=== PATIENT | male | born 1960 | race Caucasian/White ===

== ENCOUNTER 2018-03-05 04:27 | Inpatient (IN) | payer MEDICAID ==
[2018-03-05] VITALS (13 sets, daily range): BP systolic 108–136; BP diastolic 70–91
[~2018-03-05] VITALS: Ht 160 cm; Wt 68.0 kg
[~2018-03-05 04:27] MED LIST: ALB0.5UD IH; ALBU8.5H8 IH; ASPI-1265 PO; ATE25T PO; FLO44IN INH; FLUT16SP2 BOTHNARES; LORA10TA65 PO; OMEP20CA10 PO; PANT20TA3 PO
[2018-03-05 04:55] LABS: BASOPHILS # (AUTO) 0.1 X10'3 (0-0.2); BASOPHILS % (AUTO) 0.8 % (0-1); EOSINOPHILS # (AUTO) 0.7 X10'3 (0-0.9); EOSINOPHILS % (AUTO) 5.4 % (0-6); HEMATOCRIT 40.4 % (42.0-52.0); HEMOGLOBIN 14.1 g/dl (14.0-17.9); LYMPHOCYTES # (AUTO) 2.5 X10'3 (1.1-4.8); LYMPHOCYTES % (AUTO) 19.5 % (21-51); MEAN CORPUSCULAR HEMOGLOBIN 32.2 PG (27.0-31.0); MEAN CORPUSCULAR HGB CONC 34.9 % (33.0-36.5); MEAN CORPUSCULAR VOLUME 92.4 FL (78-98); MEAN PLATELET VOLUME 8.5 FL (7.4-10.4); MONOCYTES # (AUTO) 0.9 X10'3 (0-0.9); MONOCYTES % (AUTO) 6.9 % (2-12); NEUTROPHILS # (AUTO) 8.8 X10'3 (1.8-7.7); NEUTROPHILS % (AUTO) 67.4 % (42-75); PLATELET COUNT 230 X10'3 (140-440); RED BLOOD COUNT 4.37 X10'6 (4.70-6.10); RED CELL DISTRIBUTION WIDTH 12.9 % (11.5-14.5)
[2018-03-05] MEDS ORDERED: normal saline 1000ml 1,000 ML IV ONE (04:55)
[2018-03-05 04:58] LABS: CLARITY,URINE CLEAR (Clear); COLOR,URINE YELLOW (Yellow); GLUCOSE, URINE NEGATIVE (Neg); KETONES,URINE NEGATIVE (Neg); LEUKOCYTE ESTERASE ,URINE NEGATIVE (Neg); NITRITES, URINE NEGATIVE (Neg); OCCULT BLOOD,URINE SMALL (Neg); PH,URINE 6.5 (4.8-8.0); PROTEIN,URINE NEGATIVE (Neg); UROBILINOGEN,URINE 0.2 E.U/dL (0.2-1.0)
[2018-03-05 05:09] LABS: UA COLLECTION TYPE CLN CATCH MIDSTREAM
[2018-03-05 05:10] LABS: BACTERIA,URINE FEW /HPF (Neg); SQUAMOUS EPITHELIAL CELL,UR FEW /LPF (FEW); WBC,URINE 0-4 /HPF (0-4)
[2018-03-05 05:11] LABS: AMORPHOUS PHOSPHATES 1+; MUCUS STRANDS FEW /LPF (Neg)
[2018-03-05 05:18] LABS: TOTAL CELLS COUNTED 100
[2018-03-05 05:19] LABS: PLATELET ESTIMATE NORMAL
[2018-03-05 05:28] LABS: ALANINE AMINOTRANSFERASE 22 U/L (12-78); ALBUMIN 3.7 G/DL (3.4-5.0); ALBUMIN/GLOBULIN RATIO 1.2 (1.1-1.5); ALKALINE PHOSPHATASE 172 IU/L (46-116); ANION GAP 8 (8-16); ASPARTATE AMINO TRANSFERASE 13 U/L (10-37); BILIRUBIN,TOTAL 0.7 MG/DL (0.1-1.0); BLOOD UREA NITROGEN 8 MG/DL (7-18); BUN/CREATININE RATIO 8.4 (5.4-32.0); CALCIUM 8.8 MG/DL (8.5-10.1); CHLORIDE 104 MMOL/L (99-107); CREATININE 0.95 MG/DL (0.60-1.10); GLUCOSE 108 MG/DL (70-104); POTASSIUM 3.1 MMOL/L (3.5-5.1); SODIUM 142 MMOL/L (135-145); TOTAL PROTEIN 6.9 G/DL (6.4-8.2); eGFR 82 ML/MIN
[2018-03-05] MEDS ORDERED: potassium Cl 20 mEq SR tablet PO ONE (06:35)
[2018-03-05] MEDS ORDERED: piperacillin/tazo 4.5gm/100ml 100 ML IV ONE (07:40)
[2018-03-05] MEDS ORDERED: piperacillin/tazo 4.5gm/100ml 100 ML IV SCH (08:00)
[2018-03-05] MEDS ORDERED: morphine 4 MG/ML inj SYRINge IV ONE (08:40)
[2018-03-05] MEDS ORDERED: LORA10TA7 PO (08:56)
[2018-03-05] MEDS ORDERED: PANT20TA3 PO (08:56)
[2018-03-05] MEDS ORDERED: FLUT16SP2 BOTHNARES (08:56)
[2018-03-05] MEDS ORDERED: OMEP20TA5 PO (08:58)
[2018-03-05] MEDS ORDERED: HYDROcodone/acetaminophen 5mg/325mg tablet PO PRN (09:05)
[2018-03-05] MEDS ORDERED: mag hydrox/Alum hydrox/simeth 30ml oral suspension PO PRN (09:05)
[2018-03-05] MEDS ORDERED: acetaminophen 325mg tablet PO PRN ×2 (09:05)
[2018-03-05] MEDS ORDERED: HYDROcodone/acetaminophen 10/325mg tab PO PRN (09:05)
[2018-03-05] MEDS ORDERED: FLO0.4C PO (09:05)
[2018-03-05] MEDS ORDERED: potassium Cl 40MEQ/NS 500ml 500 ML IV PRN ×2 (09:05)
[2018-03-05] MEDS ORDERED: magnesium Cl slow-release 64mg tablet PO PRN (09:05)
[2018-03-05] MEDS ORDERED: ondansetron/PF 4mg/2ml inj IV PRN ×2 (09:05→19:35)
[2018-03-05] MEDS ORDERED: magnesium hydroxide 30ml (MOM) UD suspension PO PRN (09:05)
[2018-03-05] MEDS ORDERED: metoclopramide 5 mg/ml inj IV PRN (09:05)
[2018-03-05] MEDS ORDERED: magnesium 4gm in 100ml NS 100 ML IV PRN (09:05)
[2018-03-05] MEDS ORDERED: potassium Cl 20 mEq SR tablet PO PRN ×2 (09:05)
[2018-03-05] MEDS ORDERED: magnesium 1gm/100ml D5W IVPB 100 ML IV PRN (09:05)
[2018-03-05] MEDS ORDERED: albuterol 2.5 mg/0.5ml nebule NEB PRN (09:10)
[2018-03-05] MEDS: normal saline 1000ml 1,000 ML IV SCH ×2 (09:17→19:03)
[2018-03-05] MEDS ORDERED: albuterol 2.5 MG/3 ML nebule NEB PRN (09:25)
[2018-03-05] MEDS: morphine 2 MG/ML inj. syringe IV PRN ×2 (10:13→20:43)
[2018-03-05] MEDS ORDERED: BUPIVAcaine/PF 2.5mg/ml (0.25%) 10ml vial ONE (14:01)
[2018-03-05] MEDS: piperacillin/tazo 3.375gm/50ml 50 ML IV SCH ×2 (16:25→23:57)
[2018-03-05] MEDS ORDERED: ondansetron/PF 4mg/2ml inj ONE (18:21)
[2018-03-05] MEDS ORDERED: sevoflurane 250ml liquid IH ONE (18:21)
[2018-03-05] MEDS ORDERED: fentaNYL /PF 50mcg/ml 5ml ampule ONE (18:23)
[2018-03-05] MEDS ORDERED: midazolam 2 mg/2 ml injection ONE (18:23)
[2018-03-05] MEDS ORDERED: LIDOcaine 2% (20mg/ml) 5ml vial ONE (18:58)
[2018-03-05] MEDS ORDERED: propofol inj 20 ML IV ONE (18:58)
[2018-03-05] MEDS ORDERED: rocuronium 10mg/ml inj IV ONE (18:58)
[2018-03-05] MEDS ORDERED: glycopyrrolate 0.2mg/ml inj ONE (18:58)
[2018-03-05] MEDS ORDERED: neostigmine methylsulfate 1 MG/ML 10ml vial ONE (18:58)
[2018-03-05] MEDS ORDERED: albuterol 60 PUFF/8GM Inhaler IH ONE (19:19)
[2018-03-05] MEDS ORDERED: ringers solution, lacted 1,000 ML IV SCH (19:31)
[2018-03-05] MEDS ORDERED: meperidine/PF 25mg/ml syringe IV PRN ×2 (19:35)
[2018-03-05] MEDS ORDERED: morphine 4 MG/ML inj SYRINge IV PRN ×2 (19:35)
[2018-03-05] MEDS ORDERED: proCHLORperazine 10 MG/2 ml inj IV PRN (19:35)
[2018-03-05] MEDS: meperidine/PF 25mg/ml syringe IV PRN ×3 (19:44→20:03)
[2018-03-05] MEDS ORDERED: temazepam 15mg capsule PO PRN (21:00)
[2018-03-05] MEDS ORDERED: LIDOcaine 2% 10ml TOPICAL JELLY (Urojet) MM ONE (23:50)
[2018-03-06 04:56] VITALS: BP 107/59
[2018-03-06 05:25] LABS: BASOPHILS % (AUTO) 0 % (0-1); EOSINOPHILS # (AUTO) 0.1 X10'3 (0-0.9); EOSINOPHILS % (AUTO) 1.1 % (0-6); HEMOGLOBIN 12.4 g/dl (14.0-17.9); LYMPHOCYTES # (AUTO) 0.7 X10'3 (1.1-4.8); LYMPHOCYTES % (AUTO) 7.1 % (21-51); MEAN CORPUSCULAR HEMOGLOBIN 32.1 PG (27.0-31.0); MEAN CORPUSCULAR HGB CONC 34.4 % (33.0-36.5); MEAN CORPUSCULAR VOLUME 93.4 FL (78-98); MEAN PLATELET VOLUME 8.9 FL (7.4-10.4); MONOCYTES # (AUTO) 0.2 X10'3 (0-0.9); MONOCYTES % (AUTO) 2.2 % (2-12); NEUTROPHILS # (AUTO) 8.5 X10'3 (1.8-7.7); NEUTROPHILS % (AUTO) 89.6 % (42-75); PLATELET COUNT 217 X10'3 (140-440); RED BLOOD COUNT 3.85 X10'6 (4.70-6.10); RED CELL DISTRIBUTION WIDTH 13.6 % (11.5-14.5); WHITE BLOOD COUNT 9.4 X10'3 (4.5-11.0)
[2018-03-06 05:34] LABS: PARTIAL THROMBOPLASTIN TIME 26 SECONDS (22-32); PROTHROMBIN TIME 10.8 SECONDS (9.0-12.0)
[2018-03-06 05:45] LABS: ALANINE AMINOTRANSFERASE 94 U/L (12-78); ALBUMIN 3.1 G/DL (3.4-5.0); ALBUMIN/GLOBULIN RATIO 0.9 (1.1-1.5); ALKALINE PHOSPHATASE 188 IU/L (46-116); ANION GAP 11 (8-16); ASPARTATE AMINO TRANSFERASE 59 U/L (10-37); BILIRUBIN,TOTAL 0.9 MG/DL (0.1-1.0); BLOOD UREA NITROGEN 10 MG/DL (7-18); BUN/CREATININE RATIO 7.9 (5.4-32.0); CALCIUM 8.3 MG/DL (8.5-10.1); CHLORIDE 104 MMOL/L (99-107); CREATININE 1.26 MG/DL (0.60-1.10); GLUCOSE 202 MG/DL (70-104); PHOSPHORUS 2.2 MG/DL (2.3-4.5); POTASSIUM 4.2 MMOL/L (3.5-5.1); SODIUM 138 MMOL/L (135-145); TOTAL CARBON DIOXIDE 23.4 MMOL/L (24-32); TOTAL PROTEIN 6.4 G/DL (6.4-8.2); eGFR 59 ML/MIN
[2018-03-06 07:30] VITALS: BP 117/71
[2018-03-06] MEDS: normal saline 1000ml 1,000 ML IV SCH (07:36)
[2018-03-06] MEDS: piperacillin/tazo 3.375gm/50ml 50 ML IV SCH (07:36)
[2018-03-06] MEDS ORDERED: loratadine 10mg tablet PO SCH (08:00)
[2018-03-06] MEDS ORDERED: tamsulosin 0.4mg capsule PO SCH (08:00)
[2018-03-06] MEDS ORDERED: pantoprazole 40mg Tablet.DR PO SCH (08:00)
[2018-03-06] MEDS ORDERED: fluticasone nasal spray 16GM bottle NS SCH (08:00)
[2018-03-06] MEDS ORDERED: K and/or MAG REPLACEMENT MC SCH (08:00)
[2018-03-06 11:33] VITALS: BP 131/78
== END 2018-03-06 13:03 | disposition home or self-care (01) | DRG 233 ==
LOC: ER 04:27 → ED HOLD 09:03 → SUR 3N 10:36 → PAS IN 17:39 → SUR 3N 20:11
PROVIDERS: ADMIT Family Medicine; ATTEND Family Medicine
PROC: 0DTJ4ZZ Resection of Appendix, Percutaneous Endoscopic Approach (ICD-10-PCS; principal; 2018-03-05 18:21)
DX: K35.3 Acute appendicitis with localized peritonitis (principal); D72.829 Elevated white blood cell count, unspecified; E78.5 Hyperlipidemia, unspecified; I34.1 Nonrheumatic mitral (valve) prolapse; J45.909 Unspecified asthma, uncomplicated; K21.9 Gastro-esophageal reflux disease without esophagitis; E87.6 Hypokalemia; I10 Essential (primary) hypertension; K44.9 Diaphragmatic hernia without obstruction or gangrene; N40.0 Benign prostatic hyperplasia without lower urinary tract symptoms; Z88.1 Allergy status to other antibiotic agents; Z87.442 Personal history of urinary calculi; Z88.2 Allergy status to sulfonamides; Z88.6 Allergy status to analgesic agent; Z83.79 Family history of other diseases of the digestive system; Z86.010 Personal history of colon polyps
CPT/HCPCS: 36415; 71045; 74176; 80053; 81001; 83735; 84100; 85025; 85610; 85730; 86885; 86900; 86901; 87070; 93005; 94760; 96361; 96365; 96375; 99285; A4353; A7000; J2001; J2175; J2250; J2270; J2405; J2543; J2704; J2710; J2765; J3010; J3490; J7030; J7120; J7611

== ENCOUNTER 2018-04-25 05:04 | Day surgery (SDC) | payer MEDICAID ==
[2018-04-23 10:59] LABS: BASOPHILS # (AUTO) 0.1 X10'3 (0-0.2); BASOPHILS % (AUTO) 0.8 % (0-1); EOSINOPHILS # (AUTO) 0.8 X10'3 (0-0.9); LYMPHOCYTES # (AUTO) 2.4 X10'3 (1.1-4.8); LYMPHOCYTES % (AUTO) 35.3 % (21-51); MEAN CORPUSCULAR HEMOGLOBIN 31.5 PG (27.0-31.0); MEAN CORPUSCULAR HGB CONC 33.6 % (33.0-36.5); MEAN PLATELET VOLUME 8.8 FL (7.4-10.4); MONOCYTES # (AUTO) 0.5 X10'3 (0-0.9); MONOCYTES % (AUTO) 7.6 % (2-12); NEUTROPHILS # (AUTO) 3.1 X10'3 (1.8-7.7); NEUTROPHILS % (AUTO) 45.3 % (42-75); PRE OP HEMATOCRIT 42.5 % (42.0-52.0); PRE OP HEMOGLOBIN 14.2 g/dL (14.0-17.9); PRE OP PLATELET COUNT 252 X10'3 (140-440); RED BLOOD COUNT 4.52 X10'6 (4.70-6.10); RED CELL DISTRIBUTION WIDTH 12.9 % (11.5-14.5)
[2018-04-23 11:21] LABS: ALBUMIN 3.7 G/DL (3.4-5.0); ALBUMIN/GLOBULIN RATIO 1.1 (1.1-1.5); ALKALINE PHOSPHATASE 164 IU/L (46-116); BLOOD UREA NITROGEN 12 MG/DL (7-18); BUN/CREATININE RATIO 12.2 (5.4-32.0); CALCIUM 9.4 MG/DL (8.5-10.1); CHLORIDE 103 MMOL/L (99-107); CREATININE 0.98 MG/DL (0.60-1.10); PRE OP ALT 29 U/L (30-65); PRE OP ANION GAP 5 (8-16); PRE OP AST 19 U/L (10-37); PRE OP BILIRUB, TOTAL 0.4 MG/DL (0.0-1.0); PRE OP GLUCOSE 86 MG/DL (70-104); PRE OP POTASSIUM 4.3 MMOL/L (3.4-5.1); PRE OP SODIUM 141 MMOL/L (135-145); TOTAL PROTEIN 7.1 G/DL (6.4-8.2); eGFR 79 ML/MIN
[2018-04-23 12:59] LABS: CLARITY,URINE CLEAR (Clear); COLOR,URINE YELLOW (Yellow); GLUCOSE, URINE NEGATIVE (Neg); KETONES,URINE NEGATIVE (Neg); LEUKOCYTE ESTERASE ,URINE NEGATIVE (Neg); NITRITES, URINE NEGATIVE (Neg); OCCULT BLOOD,URINE LARGE (Neg); PROTEIN,URINE NEGATIVE (Neg); UROBILINOGEN,URINE 0.2 E.U/dL (0.2-1.0)
[2018-04-23 13:01] LABS: UA COLLECTION TYPE CLN CATCH MIDSTREAM
[2018-04-23 13:13] LABS: BACTERIA,URINE NONE SEEN /HPF (Neg); RBC,URINE TNTC /HPF (0-2); WBC,URINE 0-4 /HPF (0-4)
[2018-04-23 13:14] LABS: CAL OXALATE CRYSTALS 2+ /HPF (NEGATIVE); SQUAMOUS EPITHELIAL CELL,UR NONE SEEN /LPF (FEW)
[~2018-04-25] VITALS: Ht 160 cm; Wt 70.2 kg
[2018-04-25] VITALS (9 sets, daily range): BP systolic 93–154; BP diastolic 38–95
[~2018-04-25 05:04] MED LIST changes: +ALBU2.5V13 NEB; -ALBU8.5H8 IH; -ASPI-1265 PO; -ATE25T PO; -FLO44IN INH; -FLUT16SP2 BOTHNARES; +HYDR-3973 PO; -LORA10TA65 PO; +LORA10TA7 PO; -OMEP20CA10 PO; +ringers solution, lacted 1,000 ML IV SCH
[2018-04-25] MEDS ORDERED: albuterol 2.5 MG/3 ML nebule NEB ONE (05:30)
[2018-04-25] MEDS ORDERED: famotidine 20mg tablet PO ONE (05:30)
[2018-04-25] MEDS ORDERED: cefazolin/dext.iso 2gm/100 ML IV ONE (05:30)
[2018-04-25] MEDS ORDERED: LIDOcaine 1% (10mg/ml) 2ml vial ONE (05:45)
[2018-04-25] MEDS ORDERED: ceFAZolin 1000mg inj ONE (07:24)
[2018-04-25] MEDS ORDERED: epiNEPHrine 1 mg/ml inj ONE (07:24)
[2018-04-25] MEDS ORDERED: BUPIVAcaine/PF 2.5mg/ml (0.25%) 10ml vial ONE (07:25)
[2018-04-25] MEDS ORDERED: sevoflurane 250ml liquid IH ONE (07:50)
[2018-04-25] MEDS ORDERED: midazolam 2 mg/2 ml injection ONE (08:03)
[2018-04-25] MEDS ORDERED: fentaNYL/PF 50MCG/1 ML 2ML syringe ONE (08:03)
[2018-04-25] MEDS ORDERED: propofol inj 20 ML IV ONE (08:11)
[2018-04-25] MEDS ORDERED: dexamethasone sod phosphate 4mg/ml inj. ONE (08:15)
[2018-04-25] MEDS ORDERED: LIDOcaine 2% (20mg/ml) 5ml vial ONE (08:15)
[2018-04-25] MEDS ORDERED: ondansetron/PF 4mg/2ml inj ONE (08:15)
[2018-04-25] MEDS ORDERED: rocuronium 10mg/ml inj IV ONE (08:15)
[2018-04-25] MEDS ORDERED: ringers solution, lacted 1,000 ML IV SCH (08:34)
[2018-04-25] MEDS ORDERED: ondansetron/PF 4mg/2ml inj IV PRN (08:35)
[2018-04-25] MEDS ORDERED: hydrALAZINE 20mg/ml inj. IV PRN (08:35)
[2018-04-25] MEDS ORDERED: meperidine/PF 25mg/ml syringe IV PRN (08:35)
[2018-04-25] MEDS ORDERED: labetalol 20mg/4ml (5mg/ml) syringe IV PRN (08:35)
[2018-04-25] MEDS ORDERED: morphine 4 MG/ML inj SYRINge IV PRN ×2 (08:35)
[2018-04-25] MEDS: meperidine/PF 25mg/ml syringe IV PRN ×2 (09:40→09:46)
[2018-04-25] MEDS ORDERED: HYDROcodone/acetaminophen 10/325mg tab PO ONE (09:50)
== END 2018-04-25 10:20 | disposition home or self-care (01) ==
LOC: PAS 05:04
PROVIDERS: ATTEND Surgery
DX: K40.90 Unilateral inguinal hernia, without obstruction or gangrene, not specified as recurrent (principal); E78.5 Hyperlipidemia, unspecified; J45.998 Other asthma; K21.9 Gastro-esophageal reflux disease without esophagitis; N40.0 Benign prostatic hyperplasia without lower urinary tract symptoms; I10 Essential (primary) hypertension; F10.10 Alcohol abuse, uncomplicated; F41.8 Other specified anxiety disorders; Z95.828 Presence of other vascular implants and grafts; Z86.010 Personal history of colon polyps; Z90.49 Acquired absence of other specified parts of digestive tract; Z79.891 Long term (current) use of opiate analgesic; Z87.09 Personal history of other diseases of the respiratory system; Z87.442 Personal history of urinary calculi; Z88.2 Allergy status to sulfonamides; Z88.1 Allergy status to other antibiotic agents; Z88.5 Allergy status to narcotic agent; Z98.890 Other specified postprocedural states; Z88.8 Allergy status to other drugs, medicaments and biological substances; Z79.899 Other long term (current) drug therapy; Z83.79 Family history of other diseases of the digestive system
CPT/HCPCS: 36415; 49650; 80053; 81001; 85025; 93005; 94640; C1781; J0171; J0690; J1100; J2001; J2175; J2250; J2270; J2405; J2704; J3010; J3490; A4315; J7120

== ENCOUNTER 2018-07-05 01:40 | Emergency (ER) | payer MEDICAID ==
[~2018-07-05] VITALS: Ht 160 cm; Wt 65.0 kg
[~2018-07-05 01:40] MED LIST changes: -ringers solution, lacted 1,000 ML IV SCH
[2018-07-05 02:23] LABS: CLARITY,URINE CLEAR (Clear); COLOR,URINE STRAW (Yellow); GLUCOSE, URINE NEGATIVE (Neg); KETONES,URINE NEGATIVE (Neg); LEUKOCYTE ESTERASE ,URINE NEGATIVE (Neg); NITRITES, URINE NEGATIVE (Neg); OCCULT BLOOD,URINE NEGATIVE (Neg); PH,URINE 6.5 (4.8-8.0); PROTEIN,URINE NEGATIVE (Neg); UA COLLECTION TYPE CLN CATCH MIDSTREAM; UROBILINOGEN,URINE 0.2 E.U/dL (0.2-1.0)
[2018-07-05] MEDS ORDERED: CEPH500C5 PO (02:28)
[2018-07-05 02:48] VITALS: BP 129/78
== END 2018-07-05 02:53 | disposition home or self-care (01) ==
LOC: ER 01:41
DX: R35.0 Frequency of micturition (principal); I10 Essential (primary) hypertension; J45.909 Unspecified asthma, uncomplicated; K21.9 Gastro-esophageal reflux disease without esophagitis; Z98.890 Other specified postprocedural states; Z88.2 Allergy status to sulfonamides; Z88.1 Allergy status to other antibiotic agents; Z88.5 Allergy status to narcotic agent; Z88.8 Allergy status to other drugs, medicaments and biological substances
CPT/HCPCS: 81003; 82948; 99283

== ENCOUNTER 2019-07-27 23:06 | Emergency (ER) | payer MEDICAID ==
[~2019-07-27] VITALS: Ht 160 cm; Wt 74.5 kg
[2019-07-27 23:20] VITALS: BP 139/91
[2019-07-27 23:39] LABS: CLARITY,URINE CLEAR (Clear); COLOR,URINE YELLOW (Yellow); GLUCOSE, URINE NEGATIVE (Neg); KETONES,URINE NEGATIVE (Neg); LEUKOCYTE ESTERASE ,URINE NEGATIVE (Neg); NITRITES, URINE NEGATIVE (Neg); OCCULT BLOOD,URINE NEGATIVE (Neg); PH,URINE 6.5 (4.8-8.0); PROTEIN,URINE NEGATIVE (Neg); UROBILINOGEN,URINE 0.2 E.U/dL (0.2-1.0)
[2019-07-27 23:45] LABS: UA COLLECTION TYPE CLN CATCH MIDSTREAM
== END 2019-07-28 00:09 | disposition home or self-care (01) ==
LOC: ER 23:07
DX: N40.0 Benign prostatic hyperplasia without lower urinary tract symptoms (principal); I10 Essential (primary) hypertension; J45.909 Unspecified asthma, uncomplicated; K21.9 Gastro-esophageal reflux disease without esophagitis; Z98.890 Other specified postprocedural states; Z88.2 Allergy status to sulfonamides; Z88.1 Allergy status to other antibiotic agents; Z88.5 Allergy status to narcotic agent; Z79.899 Other long term (current) drug therapy
CPT/HCPCS: 81003; 82948; 99283

== ENCOUNTER 2019-08-10 11:32 | Emergency (ER) | payer MEDICAID ==
[~2019-08-10] VITALS: Ht 160 cm; Wt 73.2 kg
[2019-08-10 11:35] VITALS: BP 115/85
--- NOTE | 2019-08-10 12:37 | NUR ---
ROSANNA Thornton at bedside.
[2019-08-10] MEDS ORDERED: CEPH250T PO (14:39)
== END 2019-08-10 15:14 | disposition home or self-care (01) ==
LOC: ER 11:32
DX: L03.115 Cellulitis of right lower limb (principal); I10 Essential (primary) hypertension; J45.909 Unspecified asthma, uncomplicated; K21.9 Gastro-esophageal reflux disease without esophagitis; Z98.890 Other specified postprocedural states; Z88.2 Allergy status to sulfonamides; Z88.5 Allergy status to narcotic agent; Z88.1 Allergy status to other antibiotic agents; Z79.899 Other long term (current) drug therapy
CPT/HCPCS: 93971; 99284

== ENCOUNTER 2019-08-13 19:55 | Emergency (ER) | payer MEDICAID ==
[~2019-08-13] VITALS: Ht 160 cm; Wt 74.1 kg
[~2019-08-13 19:55] MED LIST changes: +CEPH250T PO
[2019-08-13 20:07] VITALS: BP 131/88
[2019-08-13] MEDS ORDERED: mag hydrox/Alum hydrox/simeth 30ml oral suspension PO ONE (22:20)
[2019-08-13] MEDS ORDERED: ketorolac tromethamine 15mg/ml inj. IM ONE (22:20)
== END 2019-08-13 23:10 | disposition home or self-care (01) ==
LOC: ER 19:56
DX: S90.01XA Contusion of right ankle, initial encounter (principal); M25.561 Pain in right knee; I10 Essential (primary) hypertension; J45.909 Unspecified asthma, uncomplicated; K21.9 Gastro-esophageal reflux disease without esophagitis; Z98.890 Other specified postprocedural states; Z88.2 Allergy status to sulfonamides; Z88.5 Allergy status to narcotic agent; Z88.8 Allergy status to other drugs, medicaments and biological substances; Z79.2 Long term (current) use of antibiotics; Z79.899 Other long term (current) drug therapy; X58.XXXA Exposure to other specified factors, initial encounter; Y93.89 Activity, other specified; Y92.410 Unspecified street and highway as the place of occurrence of the external cause; Y99.8 Other external cause status
CPT/HCPCS: 73564; 73610; 99284

== ENCOUNTER 2020-04-13 16:55 | Emergency (ER) | payer MEDICAID ==
[~2020-04-13] VITALS: Ht 160 cm; Wt 73.0 kg
[~2020-04-13 16:55] MED LIST changes: -CEPH250T PO; +PANT20TA18 PO; -PANT20TA3 PO
[2020-04-13 17:38] LABS: BASOPHILS % (AUTO) 0.3 % (0-1); EOSINOPHILS % (AUTO) 0.4 % (0-6); HEMATOCRIT 43.6 % (42.0-52.0); HEMOGLOBIN 14.7 g/dl (14.0-17.9); LYMPHOCYTES # (AUTO) 0.7 X10'3 (1.1-4.8); LYMPHOCYTES % (AUTO) 7.9 % (21-51); MEAN CORPUSCULAR HEMOGLOBIN 31.1 PG (27.0-31.0); MEAN CORPUSCULAR HGB CONC 33.7 g/dL (33.0-36.5); MEAN CORPUSCULAR VOLUME 92.1 FL (78-98); MEAN PLATELET VOLUME 7.9 FL (7.4-10.4); MONOCYTES # (AUTO) 0.6 X10'3 (0-0.9); MONOCYTES % (AUTO) 6.7 % (2-12); NEUTROPHILS # (AUTO) 7.6 X10'3 (1.8-7.7); NEUTROPHILS % (AUTO) 84.7 % (42-75); PLATELET COUNT 228 X10'3 (140-440); RED BLOOD COUNT 4.73 X10'6 (4.70-6.10); RED CELL DISTRIBUTION WIDTH 12.9 % (11.5-14.5); WHITE BLOOD COUNT 8.9 X10'3 (4.5-11.0)
[2020-04-13 18:01] LABS: ALANINE AMINOTRANSFERASE 34 U/L (12-78); ALBUMIN 3.9 G/DL (3.4-5.0); ALBUMIN/GLOBULIN RATIO 1.1 (1.1-1.5); ALKALINE PHOSPHATASE 165 IU/L (46-116); ANION GAP 9 (8-16); ASPARTATE AMINO TRANSFERASE 21 U/L (10-37); BILIRUBIN,TOTAL 0.6 MG/DL (0.1-1.0); BLOOD UREA NITROGEN 12 MG/DL (7-18); BUN/CREATININE RATIO 10.7 (5.4-32.0); CALCIUM 8.9 MG/DL (8.5-10.1); CHLORIDE 102 MMOL/L (99-107); CREATININE 1.12 MG/DL (0.60-1.10); GLUCOSE 114 MG/DL (70-104); LIPASE 76 U/L (73-393); POTASSIUM 3.7 MMOL/L (3.5-5.1); SODIUM 137 MMOL/L (135-145); TOTAL CARBON DIOXIDE 26.4 MMOL/L (24-32); TOTAL PROTEIN 7.5 G/DL (6.4-8.2); eGFR 68 ML/MIN
[2020-04-13] MEDS ORDERED: acetaminophen 325mg tablet PO ONE (18:05)
[2020-04-13] MEDS ORDERED: dicyclomine 10 MG capsule PO ONE (18:05)
[2020-04-13] MEDS ORDERED: mag hydrox/Alum hydrox/simeth 30ml oral suspension PO ONE (18:05)
[2020-04-13 18:34] LABS: CLARITY,URINE SLIGHTLY CLOUDY (Clear); COLOR,URINE YELLOW (Yellow); GLUCOSE, URINE NEGATIVE (Neg); KETONES,URINE NEGATIVE (Neg); LEUKOCYTE ESTERASE ,URINE SMALL (Neg); NITRITES, URINE NEGATIVE (Neg); OCCULT BLOOD,URINE NEGATIVE (Neg); PH,URINE 7.5 (4.8-8.0); PROTEIN,URINE 30 mg/dl (Neg); UROBILINOGEN,URINE 0.2 E.U/dL (0.2-1.0)
[2020-04-13] MEDS ORDERED: ONDA4TAB6 PO (18:35)
[2020-04-13] MEDS ORDERED: DICY10CA88 PO (18:35)
[2020-04-13 18:36] LABS: UA COLLECTION TYPE URINAL
[2020-04-13 18:48] VITALS: BP 120/62
[2020-04-13 18:58] LABS: BACTERIA,URINE FEW /HPF (Neg); RBC,URINE 0-2 /HPF (0-2); SQUAMOUS EPITHELIAL CELL,UR FEW /LPF (FEW)
[2020-04-13 18:59] LABS: MUCUS STRANDS MODERATE /LPF (Neg)
== END 2020-04-13 18:51 | disposition home or self-care (01) ==
LOC: ER 16:56
DX: R10.9 Unspecified abdominal pain (principal); R11.2 Nausea with vomiting, unspecified; R19.7 Diarrhea, unspecified; M79.10 Myalgia, unspecified site; R09.81 Nasal congestion; R50.9 Fever, unspecified; R51.9 Headache, unspecified; I10 Essential (primary) hypertension; J45.909 Unspecified asthma, uncomplicated; F41.9 Anxiety disorder, unspecified; Z79.899 Other long term (current) drug therapy; Z88.6 Allergy status to analgesic agent; Z88.1 Allergy status to other antibiotic agents; Z88.5 Allergy status to narcotic agent; Z20.828 Contact with and (suspected) exposure to other viral communicable diseases
CPT/HCPCS: 36415; 80053; 81001; 83690; 85025; 87088; 87635; 99284

== ENCOUNTER 2021-07-22 21:01 | Emergency (ER) | payer MEDICAID ==
[~2021-07-22] VITALS: Ht 160 cm; Wt 72.7 kg
[~2021-07-22 21:01] MED LIST changes: +DICY10CA88 PO; +ONDA4TAB6 PO
[2021-07-22 21:47] VITALS: BP 147/92
== END 2021-07-23 02:06 | disposition left against medical advice (07) ==
LOC: ER 21:02
DX: S61.419A Laceration without foreign body of unspecified hand, initial encounter (principal); Z53.21 Procedure and treatment not carried out due to patient leaving prior to being seen by health care provider; X58.XXXA Exposure to other specified factors, initial encounter; Y93.9 Activity, unspecified; Y92.9 Unspecified place or not applicable; Y99.9 Unspecified external cause status

== ENCOUNTER 2023-05-02 17:57 | Inpatient (IN) | payer MEDICAID ==
[~2023-05-02] VITALS: Ht 160 cm; Wt 71.3 kg
[2023-05-02] MEDS ORDERED: ketorolac tromethamine 15mg/ml inj. IM ONE (19:10)
[2023-05-02] MEDS ORDERED: iohexol 300mg/ml 100ml inj. ONE (19:26)
[2023-05-02 19:32] LABS: BASOPHILS # (AUTO) 0.1 X10'3 (0-0.2); BASOPHILS % (AUTO) 0.4 % (0-1); EOSINOPHILS # (AUTO) 0.1 X10'3 (0-0.9); EOSINOPHILS % (AUTO) 0.4 % (0-6); HEMATOCRIT 43.6 % (42.0-52.0); HEMOGLOBIN 14.6 g/dl (14.0-17.9); LYMPHOCYTES # (AUTO) 1.3 X10'3 (1.1-4.8); LYMPHOCYTES % (AUTO) 8.2 % (21-51); MEAN CORPUSCULAR HEMOGLOBIN 31.4 PG (27.0-31.0); MEAN CORPUSCULAR HGB CONC 33.4 g/dL (33.0-36.5); MEAN CORPUSCULAR VOLUME 94.1 FL (78-98); MEAN PLATELET VOLUME 8.4 FL (7.4-10.4); MONOCYTES # (AUTO) 1.2 X10'3 (0-0.9); MONOCYTES % (AUTO) 7.9 % (2-12); NEUTROPHILS # (AUTO) 12.9 X10'3 (1.8-7.7); NEUTROPHILS % (AUTO) 83.1 % (42-75); PLATELET COUNT 281 X10'3 (140-440); RED BLOOD COUNT 4.64 X10'6 (4.70-6.10); RED CELL DISTRIBUTION WIDTH 13.3 % (11.5-14.5); WHITE BLOOD COUNT 15.6 X10'3 (4.5-11.0)
[2023-05-02 19:43] LABS: ALANINE AMINOTRANSFERASE 29 U/L (12-78); ALBUMIN 4.1 G/DL (3.4-5.0); ALBUMIN/GLOBULIN RATIO 1.1 (1.1-1.5); ALKALINE PHOSPHATASE 192 IU/L (46-116); ANION GAP 4 (8-16); ASPARTATE AMINO TRANSFERASE 23 U/L (10-37); BILIRUBIN,TOTAL 0.5 MG/DL (0.1-1.0); BLOOD UREA NITROGEN 10 MG/DL (7-18); BUN/CREATININE RATIO 8.4 (10.0-20.0); CALCIUM 9.2 MG/DL (8.5-10.1); CHLORIDE 101 MMOL/L (99-107); CREATININE 1.19 MG/DL (0.60-1.10); GLUCOSE 112 MG/DL (70-104); LIPASE 33 U/L (16-77); SODIUM 135 MMOL/L (135-145); TOTAL CARBON DIOXIDE 30.1 MMOL/L (24-32); TOTAL PROTEIN 7.7 G/DL (6.4-8.2); eCRCL 53 ML/MIN; eGFR 62 ML/MIN
[2023-05-02] MEDS ORDERED: ketorolac trometh. 30mg/ml inj. IV ONE (20:10)
[2023-05-02 20:25] LABS: BILIRUBIN,URINE NEGATIVE (Neg); CLARITY,URINE SLIGHTLY CLOUDY (Clear); COLOR,URINE YELLOW (Yellow); GLUCOSE, URINE NEGATIVE (Neg); KETONES,URINE NEGATIVE (Neg); LEUKOCYTE ESTERASE ,URINE NEGATIVE (Neg); NITRITES, URINE NEGATIVE (Neg); OCCULT BLOOD,URINE NEGATIVE (Neg); PROTEIN,URINE NEGATIVE (Neg)
[2023-05-02 20:35] LABS: UA COLLECTION TYPE CLN CATCH MIDSTREAM
[2023-05-02 20:38] LABS: BACTERIA,URINE NONE SEEN /HPF (Neg); MUCUS STRANDS NONE SEEN /LPF (Neg); RBC,URINE 0-2 /HPF (0-2); SQUAMOUS EPITHELIAL CELL,UR FEW /LPF (FEW); WBC,URINE 0-4 /HPF (0-4)
[2023-05-02] MEDS ORDERED: normal saline 1000ml 1,000 ML IV ONE (20:45)
[2023-05-02] MEDS ORDERED: piperacillin/tazo 3.375gm/50ml 50 ML IV ONE (20:45)
--- NOTE | 2023-05-02 21:15 | NUR ---
agree with willy, import/export specialist assessment, reviewed.
[2023-05-02] MEDS ORDERED: magnesium 4gm in 100ml NS 100 ML IV PRN (22:00)
[2023-05-02] MEDS ORDERED: potassium Cl 40MEQ/1/2NS 520ml 520 ML IV PRN (22:00)
[2023-05-02] MEDS ORDERED: acetaminophen 325mg tablet PO PRN (22:00)
[2023-05-02] MEDS ORDERED: morphine 2 MG/ML inj. syringe IV PRN (22:00)
[2023-05-02] MEDS ORDERED: morphine 4 MG/ML inj SYRINge IV PRN (22:00)
[2023-05-02] MEDS ORDERED: magnesium 2GM in 50ml NS 50 ML IV PRN (22:00)
[2023-05-02] MEDS ORDERED: potassium Cl 20 mEq SR tablet PO PRN ×2 (22:00)
[2023-05-02] MEDS: ondansetron/PF 4mg/2ml inj IV PRN (22:53)
[2023-05-02] MEDS: normal saline 1000ml 1,000 ML IV SCH (22:59)
[2023-05-02] MEDS: mag hydrox/Alum hydrox/simeth 30ml oral suspension PO PRN (23:49)
--- NOTE | 2023-05-02 23:49 | NUR ---
pt requested medication for upper gastric pain prn med given
[2023-05-03] MEDS: piperacillin/tazo 4.5gm/100ml 100 ML IV SCH ×3 (00:53→17:44)
--- NOTE | 2023-05-03 02:30 | NUR ---
pt requested meds for headache prn med given
--- NOTE | 2023-05-03 05:55 | NUR ---
pt requested toradol, pt stated it worked better for his pain. paged, awaiting orders
[2023-05-03 06:05] LABS: BASOPHILS # (AUTO) 0.1 X10'3 (0-0.2); BASOPHILS % (AUTO) 0.6 % (0-1); EOSINOPHILS # (AUTO) 0.1 X10'3 (0-0.9); EOSINOPHILS % (AUTO) 0.9 % (0-6); HEMATOCRIT 38.9 % (42.0-52.0); HEMOGLOBIN 13.1 g/dl (14.0-17.9); LYMPHOCYTES # (AUTO) 2.6 X10'3 (1.1-4.8); LYMPHOCYTES % (AUTO) 23.8 % (21-51); MEAN CORPUSCULAR HEMOGLOBIN 31.9 PG (27.0-31.0); MEAN CORPUSCULAR HGB CONC 33.8 g/dL (33.0-36.5); MEAN CORPUSCULAR VOLUME 94.4 FL (78-98); MEAN PLATELET VOLUME 8.3 FL (7.4-10.4); MONOCYTES # (AUTO) 1.3 X10'3 (0-0.9); MONOCYTES % (AUTO) 11.9 % (2-12); NEUTROPHILS # (AUTO) 6.7 X10'3 (1.8-7.7); NEUTROPHILS % (AUTO) 62.8 % (42-75); PLATELET COUNT 232 X10'3 (140-440); RED BLOOD COUNT 4.12 X10'6 (4.70-6.10); RED CELL DISTRIBUTION WIDTH 13.3 % (11.5-14.5); WHITE BLOOD COUNT 10.7 X10'3 (4.5-11.0)
[2023-05-03 06:32] LABS: ALANINE AMINOTRANSFERASE 90 U/L (12-78); ALBUMIN 3.1 G/DL (3.4-5.0); ALKALINE PHOSPHATASE 180 IU/L (46-116); ANION GAP 3 (8-16); ASPARTATE AMINO TRANSFERASE 83 U/L (10-37); BILIRUBIN,TOTAL 1.4 MG/DL (0.1-1.0); BLOOD UREA NITROGEN 12 MG/DL (7-18); BUN/CREATININE RATIO 10.3 (10.0-20.0); CALCIUM 8.3 MG/DL (8.5-10.1); CHLORIDE 106 MMOL/L (99-107); CHOL/HDL RATIO 2.9 (0.00-4.99); CHOLESTEROL 144 MG/DL (0-200); CREATININE 1.17 MG/DL (0.60-1.10); GLUCOSE 94 MG/DL (70-104); HDL CHOLESTEROL 50 MG/DL (35-60); LDL CHOLESTEROL 74 MG/DL (50-100); MAGNESIUM 2.1 MG/DL (1.5-2.4); SODIUM 138 MMOL/L (135-145); TOTAL CARBON DIOXIDE 29.4 MMOL/L (24-32); TOTAL PROTEIN 6.2 G/DL (6.4-8.2); TRIGLYCERIDES 74 MG/DL (20-135); eCRCL 54 ML/MIN; eGFR 64 ML/MIN
[2023-05-03] MEDS: normal saline 1000ml 1,000 ML IV SCH ×2 (08:00→20:34)
[2023-05-03] MEDS: K and/or MAG REPLACEMENT MC SCH ×2 (08:00→20:23)
[2023-05-03] MEDS: mag hydrox/Alum hydrox/simeth 30ml oral suspension PO PRN (08:19)
[2023-05-03] MEDS: ondansetron/PF 4mg/2ml inj IV PRN (08:39)
[2023-05-03] MEDS ORDERED: atropine 1 MG/1 ML vial IV PRN (09:55)
[2023-05-03] MEDS ORDERED: LORazepam 2 mg/ml vial IV PRN (10:30)
[2023-05-03] MEDS: ketorolac tromethamine 15mg/ml inj. IV PRN ×2 (11:03→17:44)
--- NOTE | 2023-05-03 11:53 | NUR ---
laya has a mri and needs to be npo for 8 hours, nena stated this can start at 12-2 am 05/04/2023 as he already had breakfast and she stated she will not be here at 8 tonight.
--- NOTE | 2023-05-03 14:41 | NUR ---
charge nurse has not assigned this patient to a nurse at this time attempted to give report at [id number]
[2023-05-03 15:20] VITALS: RESP 18; O2SAT 99
[2023-05-03 15:40] VITALS: BP 127/71; PULSE 76; RESP 76; TEMP 98.8; O2SAT 99
[2023-05-03 18:00] VITALS: BP 139/83; PULSE 85; RESP 13; TEMP 99.4; O2SAT 99
--- NOTE | 2023-05-03 18:30 | NUR ---
Report to Prudence RN
--- NOTE | 2023-05-03 19:12 | NUR ---
Patient in room [facility]TH[facility] 4010. I have received report from VY EASLEY and had the opportunity to ask questions and assume patient care.
[2023-05-03 20:00] VITALS: RESP 13; O2SAT 99
[2023-05-03] MEDS ORDERED: enoxaparin 40mg/0.4ml syringe SQ SCH (20:00)
[2023-05-03 22:00] VITALS: BP 135/79; PULSE 72; RESP 18; TEMP 98.5; O2SAT 98
[2023-05-04] MEDS: ketorolac tromethamine 15mg/ml inj. IV PRN (03:21)
[2023-05-04] MEDS: normal saline 1000ml 1,000 ML IV SCH (03:45)
[2023-05-04 06:00] VITALS: BP 132/79; PULSE 71; RESP 14; TEMP 97.2; O2SAT 97
--- NOTE | 2023-05-04 06:15 | NUR ---
Patient in room ORTHO 4010. I have received report from Brittany EASLEY and had the opportunity to ask questions and assume patient care.
[2023-05-04 07:05] LABS: BASOPHILS % (AUTO) 0.4 % (0-1); EOSINOPHILS # (AUTO) 0.2 X10'3 (0-0.9); HEMATOCRIT 36.5 % (42.0-52.0); HEMOGLOBIN 12.3 g/dl (14.0-17.9); LYMPHOCYTES # (AUTO) 2.2 X10'3 (1.1-4.8); LYMPHOCYTES % (AUTO) 23.5 % (21-51); MEAN CORPUSCULAR HGB CONC 33.8 g/dL (33.0-36.5); MEAN CORPUSCULAR VOLUME 94.7 FL (78-98); MEAN PLATELET VOLUME 8.7 FL (7.4-10.4); MONOCYTES # (AUTO) 0.8 X10'3 (0-0.9); MONOCYTES % (AUTO) 8.7 % (2-12); NEUTROPHILS # (AUTO) 6.1 X10'3 (1.8-7.7); NEUTROPHILS % (AUTO) 65.4 % (42-75); PLATELET COUNT 213 X10'3 (140-440); RED BLOOD COUNT 3.85 X10'6 (4.70-6.10); RED CELL DISTRIBUTION WIDTH 13.3 % (11.5-14.5); WHITE BLOOD COUNT 9.3 X10'3 (4.5-11.0)
[2023-05-04 07:36] LABS: ALANINE AMINOTRANSFERASE 71 U/L (12-78); ALBUMIN 2.8 G/DL (3.4-5.0); ALBUMIN/GLOBULIN RATIO 0.9 (1.1-1.5); ALKALINE PHOSPHATASE 167 IU/L (46-116); ANION GAP 6 (8-16); ASPARTATE AMINO TRANSFERASE 43 U/L (10-37); BILIRUBIN,TOTAL 0.8 MG/DL (0.1-1.0); BLOOD UREA NITROGEN 12 MG/DL (7-18); BUN/CREATININE RATIO 11.7 (10.0-20.0); CALCIUM 8.4 MG/DL (8.5-10.1); CHLORIDE 106 MMOL/L (99-107); CREATININE 1.03 MG/DL (0.60-1.10); GLUCOSE 78 MG/DL (70-104); MAGNESIUM 1.9 MG/DL (1.5-2.4); POTASSIUM 3.9 MMOL/L (3.5-5.1); SODIUM 138 MMOL/L (135-145); TOTAL CARBON DIOXIDE 26.1 MMOL/L (24-32); eCRCL 61 ML/MIN; eGFR 74 ML/MIN
[2023-05-04] MEDS: K and/or MAG REPLACEMENT MC SCH (08:00)
[2023-05-04 08:35] VITALS: RESP 18
--- NOTE | 2023-05-04 12:42 | NUR ---
clarified allergy with patient, hydromorphone makes him sick. He has taken norco before without adverse side effects.
[2023-05-04] MEDS ORDERED: HYDROcodone/acetaminophen 5mg/325mg tablet PO PRN (12:45)
[2023-05-04] MEDS ORDERED: HYDR-3973 PO (12:50)
[2023-05-04] MEDS ORDERED: LIPA1CAP30 PO (12:50)
== END 2023-05-04 14:00 | disposition home or self-care (01) | DRG 282 ==
LOC: ER 17:58 → ED HOLD 22:12 → ORTHO 4S 05-03 15:20
PROVIDERS: ADMIT Family Medicine; ATTEND Internal Medicine
PROC: BW211ZZ Computerized Tomography (CT Scan) of Abdomen and Pelvis using Low Osmolar Contrast (ICD-10-PCS; principal; 2023-05-02)
DX: K85.90 Acute pancreatitis without necrosis or infection, unspecified (principal); D72.829 Elevated white blood cell count, unspecified; E78.1 Pure hyperglyceridemia; F41.9 Anxiety disorder, unspecified; I10 Essential (primary) hypertension; K86.1 Other chronic pancreatitis; N20.0 Calculus of kidney; J45.909 Unspecified asthma, uncomplicated; K21.9 Gastro-esophageal reflux disease without esophagitis; K58.9 Irritable bowel syndrome, unspecified; N40.0 Benign prostatic hyperplasia without lower urinary tract symptoms; Z88.2 Allergy status to sulfonamides; Z88.6 Allergy status to analgesic agent; Z88.1 Allergy status to other antibiotic agents; Z88.5 Allergy status to narcotic agent; Z87.442 Personal history of urinary calculi; Z79.899 Other long term (current) drug therapy; Z90.49 Acquired absence of other specified parts of digestive tract
CPT/HCPCS: 36415; 74176; 74177; 74181; 76700; 80053; 80061; 81001; 83690; 83735; 85025; 87081; 99285; G0378; J1650; J1885; J2060; J2270; J2405; J2543; J3490; J7030; Q9967

== ENCOUNTER 2023-05-05 17:27 | Emergency (ER) | payer MEDICAID ==
[~2023-05-05] VITALS: Ht 170.2 cm; Wt 71.6 kg
[~2023-05-05 17:27] MED LIST changes: +LIPA1CAP30 PO
[2023-05-05 17:33] VITALS: BP 139/106; PULSE 74; RESP 16; TEMP 98.2; O2SAT 98
== END 2023-05-05 18:42 | disposition left against medical advice (07) ==
LOC: ER 17:28
DX: L29.9 Pruritus, unspecified (principal); Z53.21 Procedure and treatment not carried out due to patient leaving prior to being seen by health care provider
CPT/HCPCS: 99281

== ENCOUNTER 2023-05-08 22:36 | Emergency (ER) | payer MEDICAID ==
[~2023-05-08] VITALS: Ht 160 cm; Wt 70.0 kg
[2023-05-08 22:49] VITALS: BP 161/93; PULSE 83; RESP 18; TEMP 98.4; O2SAT 99
[2023-05-08 23:28] LABS: BASOPHILS # (AUTO) 0.1 X10'3 (0-0.2); BASOPHILS % (AUTO) 0.8 % (0-1); EOSINOPHILS # (AUTO) 0.1 X10'3 (0-0.9); EOSINOPHILS % (AUTO) 0.8 % (0-6); HEMATOCRIT 40.8 % (42.0-52.0); HEMOGLOBIN 13.9 g/dl (14.0-17.9); LYMPHOCYTES # (AUTO) 1.8 X10'3 (1.1-4.8); MEAN CORPUSCULAR HEMOGLOBIN 31.8 PG (27.0-31.0); MEAN CORPUSCULAR VOLUME 93.4 FL (78-98); MEAN PLATELET VOLUME 8.1 FL (7.4-10.4); MONOCYTES # (AUTO) 0.5 X10'3 (0-0.9); MONOCYTES % (AUTO) 6.2 % (2-12); NEUTROPHILS # (AUTO) 5.4 X10'3 (1.8-7.7); NEUTROPHILS % (AUTO) 69.2 % (42-75); PLATELET COUNT 338 X10'3 (140-440); RED BLOOD COUNT 4.37 X10'6 (4.70-6.10); RED CELL DISTRIBUTION WIDTH 13.1 % (11.5-14.5); WHITE BLOOD COUNT 7.8 X10'3 (4.5-11.0)
[2023-05-08 23:28] LABS: BILIRUBIN,URINE NEGATIVE (Neg); CLARITY,URINE CLEAR (Clear); COLOR,URINE STRAW (Yellow); GLUCOSE, URINE NEGATIVE (Neg); KETONES,URINE TRACE mg/dl (Neg); LEUKOCYTE ESTERASE ,URINE NEGATIVE (Neg); NITRITES, URINE NEGATIVE (Neg); OCCULT BLOOD,URINE NEGATIVE (Neg); PH,URINE 7.5 (4.8-8.0); PROTEIN,URINE NEGATIVE (Neg); UROBILINOGEN,URINE 0.2 E.U/dL (0.2-1.0)
[2023-05-08 23:34] LABS: UA COLLECTION TYPE VOIDED
[2023-05-08 23:40] LABS: ALANINE AMINOTRANSFERASE 32 U/L (12-78); ALBUMIN 4.2 G/DL (3.4-5.0); ALBUMIN/GLOBULIN RATIO 1.2 (1.1-1.5); ALKALINE PHOSPHATASE 170 IU/L (46-116); ANION GAP 9 (8-16); ASPARTATE AMINO TRANSFERASE 26 U/L (10-37); BILIRUBIN,TOTAL 0.4 MG/DL (0.1-1.0); BLOOD UREA NITROGEN 14 MG/DL (7-18); BUN/CREATININE RATIO 11.6 (10.0-20.0); CALCIUM 9.2 MG/DL (8.5-10.1); CHLORIDE 100 MMOL/L (99-107); CREATININE 1.21 MG/DL (0.60-1.10); GLUCOSE 106 MG/DL (70-104); POTASSIUM 3.8 MMOL/L (3.5-5.1); SODIUM 136 MMOL/L (135-145); TOTAL CARBON DIOXIDE 26.6 MMOL/L (24-32); TOTAL PROTEIN 7.6 G/DL (6.4-8.2); eCRCL 52 ML/MIN; eGFR 61 ML/MIN
[2023-05-08 23:41] LABS: LIPASE 19 U/L (16-77)
--- NOTE | 2023-05-09 00:27 | NUR ---
pt education given on statring alternate medication without md notification. pt understood with return demo.
--- NOTE | 2023-05-09 01:02 | NUR ---
pt seen by staff leaving the er. informed
== END 2023-05-09 01:04 | disposition left against medical advice (07) ==
LOC: ER 22:36
DX: G89.29 Other chronic pain (principal); R10.9 Unspecified abdominal pain
CPT/HCPCS: 36415; 80053; 81003; 82948; 83690; 85025; 99283

== ENCOUNTER 2023-07-05 00:25 | Emergency (ER) | payer MEDICAID ==
[~2023-07-05] VITALS: Ht 160 cm; Wt 69.4 kg
[2023-07-05 00:29] VITALS: BP 158/96; PULSE 70; RESP 16; TEMP 98.2; O2SAT 99
== END 2023-07-05 03:04 | disposition left against medical advice (07) ==
LOC: ER 00:26
DX: M79.645 Pain in left finger(s) (principal); Z53.21 Procedure and treatment not carried out due to patient leaving prior to being seen by health care provider
CPT/HCPCS: 99281; 99285

== ENCOUNTER 2023-11-03 02:54 | Emergency (ER) | payer MEDICAID | END 2023-11-03 04:31 | disposition left against medical advice (07) | LOC: ER 02:55 | DX: H57.10 Ocular pain, unspecified eye (principal); Z53.21 Procedure and treatment not carried out due to patient leaving prior to being seen by health care provider ==

== ENCOUNTER 2024-02-29 20:16 | Emergency (ER) | payer MEDICAID ==
[~2024-02-29] VITALS: Ht 160 cm; Wt 67.3 kg
[2024-02-29 20:17] VITALS: BP 147/86; PULSE 69; RESP 18; TEMP 98.3; O2SAT 99
== END 2024-02-29 22:12 | disposition left against medical advice (07) ==
LOC: ER 20:16
DX: K59.00 Constipation, unspecified (principal); R10.84 Generalized abdominal pain; Z88.2 Allergy status to sulfonamides; Z88.1 Allergy status to other antibiotic agents; Z88.8 Allergy status to other drugs, medicaments and biological substances; Z53.21 Procedure and treatment not carried out due to patient leaving prior to being seen by health care provider

== ENCOUNTER 2024-10-29 14:22 | Emergency (ER) | payer MEDICAID ==
[~2024-10-29] VITALS: Ht 160 cm; Wt 63.6 kg
[2024-10-29 14:29] VITALS: BP 162/92; PULSE 78; RESP 18; TEMP 98.3; O2SAT 99
--- NOTE | 2024-10-29 15:05 | Physician Documentation ---
History of Present Illness ~ Chief Complaint: Numbness Stated Complaint: JAW SWELLING Time Seen by MD: 14:38 Primary Medical Doctor: JOSE ELZIABETH This is a 64-year-old gentleman who presents for evaluation of ongoing neurologic symptoms. He states that he was diagnosed with a Daly's palsy three days ago, started on acyclovir. He feels that valacyclovir makes him more difficult to swallow. He was not prescribed prednisone. He reports difficulty swallowing and describes that as water spilling out of his mouth. Examined his neck and noticed a hard object under his right neck. He is concerned. He reports intermittent numbness in his left tongue. No choking. No voice changes. No other deficits. No change in sensation in his face. Denies any concerns for tobacco, alcohol or illicit substances use Medication Reconciliation Allergies: Coded Allergies: ibuprofen (Verified Allergy, Intermediate, tight chest and SOB, 10/29/24) Sulfa (Sulfonamide Antibiotics) (Verified Allergy, Unknown, 10/29/24) throat swelling azithromycin (Verified Allergy, Unknown, 10/29/24) chest tightness prednisone (Verified Allergy, Unknown, 10/29/24) eye problems-seeing red spot hydromorphone HCl (Verified Adverse Reaction, Unknown, N/V, 10/29/24) Scheduled Albuterol Sulfate (Albuterol Sulfate), Unknown Dose NEB Q4HPRN, (Reported) Dicyclomine Hcl* (Bentyl*), 1 CAP PO Q12H Lipase/Protease/Amylase (Pancreaze Dr 16,800 Unit Cap), 16,800 UNIT PO TIDWM Loratadine (Loratadine), 1 TAB PO DAILY, (Reported) Ondansetron Hcl (Zofran), 1 TAB PO Q12H PRN Pantoprazole Sodium (Protonix), 1 TAB PO DAILY, (Reported) Scheduled PRN Albuterol Sulfate Nebs* (Proventil Nebs*), 2.5 MG IH Q4H PRN, (Reported) Hydrocodone Bit/Acetaminophen (Hydrocodone-Apap 10-325 Tablet), 1 TAB PO TID PRN for pain Past Medical History Past Medical History: Hypertension, Asthma, Bronchitis, *GI/HEPATOBILIARY*, GERD, Anxiety Past Surgical History: abdominal surgery, other Patient History: FH: gallbladder disease MOTHER (LIVER FAILURE, ETOH), FH: hepatic cirrhosis MOTHER (LIVER FAILURE, ETOH), Alcohol Use: None Drug Use: none Lives with: Family Lives In: Home Occupation: employed Review of Systems ROS 10 point review of systems was performed and unless noted above in HPI is negative for acute process/complaint. Physical Exam Vital Signs: Temperature: 98.3, Source: Temporal, Heart Rate: 78, Respiratory Rate: 18, BP: 162/92, Pulse Oximetry: 99, Weight: 63.640 General Appearance Physical examination: GENERAL: Awake, alert, oriented, GCS 15, no apparent distress, non-toxic appearing, answers questions, follows commands appropriately. HEENT: Atraumatic, normocephalic, pupils equal, extraocular muscles intact Active gross movements, sclerae anicteric, mucus membranes moist, no stridor. NECK: Midline, no JVD CARDIOVASCULAR: Good skin perfusion without evidence of pallor, mottling. PULMONARY: Nonlabored, symmetric chest rise, no audible wheezing, no accessory muscle use, no respiratory distress, speaking in full sentences. GASTROINTESTINAL: Not distended. NEUROLOGIC: Lucid with normal mental status. Normal facial symmetry. Moves all extremities symmetrically and with purpose. No truncal ataxia. Speech is fluid without evidence of dysarthria or aphasia, no focal deficits appreciated. EXTREMITIES: Acute deformities Skin: warm, dry PSYCHIATRIC: Normal affect, normal insight, normal concentration. Focused exam: [] Right-sided facial paralysis both upper and lower face, weak eye lid, absent smile on the right side, midline tongue, otherwise 5/5 strength in all muscle groups, equal and symmetric. Preserved sensation. Progress Results/Orders Results/Orders Vital Signs 10/29/24 14:29 Temp 98.3 Pulse 78 Resp 18 B/P (MAP) 162/92 Pulse Ox 99 Medical Decision Making Findings Facility Status: ED Holds, [facility] process The plan was discussed with the patient, who demonstrates clear understanding of the plan and is in agreement with the plan unless otherwise noted in the chart. All questions have been answered, all concerns were addressed unless otherwise documented. I was available throughout their ED stay for frequent reassessment and questions. Differential Diagnoses (considered and possible or likely): [Most likely Daly's palsy, stroke has been considerably less likely given the he has upper and lower branch of cranial nerve 7 in the right side paralyzed and has tongue numbness without motor weakness of the tongue, consistent with tongue innervation. No evidence of traumatic injury. ??Differential Diagnoses (considered and unlikely, not requiring evaluation currently): [See above] MDM Data Please see [facility] for the following: Independent Historians and external Records Review. Historian: [Patient] Independent Historians: ?[Son] Medication Management: [Reviewed medication list] Social History and determinants: [Reviewed] Please see the body of the note for the following: Any independent interpretations of ECG, imaging studies. All vitals signs/haemodynamics, ordered tests were independently reviewed and interpreted by myself. Nursing triage complaint and vitals reviewed, additional nursing notes were reviewed as available and I agree unless otherwise noted or documented in contradiction in the chart Vital Signs: Independently reviewed Labs: Independently interpreted Imaging: Independently interpreted Old Medical Records: Independently reviewed, see [facility] for relevant summary and information Pulse Oximetry: [99%] interpreted as [normal on room air] by me Additionally notably showing: [Hemodynamically stable] Tests considered but not ordered include: [There is no new neurologic symptoms. The gentleman is very specific that all his symptoms including, numbness, difficulty swallowing/spilling water out of the corner of his mouth on the right side, and facial paralysis has been present for three days. Imaging has been considered but does not appear to be necessary.] Social Determinants of Health Impact: Patient was evaluated in [facility] [place] to healthcare due to below par ratio of patient to medical providers. [\] Comorbid Conditions Impacting Present Evaluation and Care/Treatment: [History of retinal hemorrhage] Management Discussions with other Healthcare Providers: [] Treatment and Disposition Medication Management (Given or considered): []. See EMR for details Consideration for Hospitalization/Escalation/Deescalation of Care: Admission for observation has been considered, [however the patient is able to tolerate p.o., their symptoms are controlled, they are able to rely on oral medications, and their chief complaint/diagnosis can be managed on outpatient basis.] ?ED Course:?[Discussed the possibility of imaging, discussed and verified that all of the symptoms, every single one of them, symptom by symptoms, we will present for three days. He is outside of any sort of stroke workup window. He has no neurologic symptoms outside of classic Daly's palsy presentation. I discussed the risks and benefits of initiating prednisone treatment. The patient would like steroids. He understands that there is a certain percentage that his disability is permanent. ?Shared decision making:?[Patient is hemodynamically stable for discharge home with follow with their primary care provider. [ ] Specific and cautious return precautions provided and discussed with full understanding. Any incidental findings were also discussed and follow up recommendations given. [] All questions answered. Patient/family were able to verbalize back return precautions. Patient/family agree to plan. Copies of imaging and laboratory studies were provided.] Code status:?FULL Please see the full Electronic Medical Record for full details of nursing documentation, medications list, other records of complete past medical history and conditions, vital signs, laboratory studies, and any radiologic study interpretations by radiologists. Portions of this note were completed using [employer] dictation software and as a result there may exist minor errors in spelling. I have reviewed elements of past family and social history and agree a s included in note. Departure Disposition: HOME / SELF CARE / HOMELESS Impression: Primary Impression: Daly's palsy Condition: Improved Discharge Instructions: Daly's Palsy, Adult Referrals: NO PRIMARY CARE PROVIDER (PCP) Prescriptions Prednisone* (Prednisone*) 20 Mg Tablet 3 TAB PO DAILY for 7 Days, #21 TAB Prov: LISA MUELLER DO 10/29/24 Education Educated: Patient, Family Educated regarding: diagnosis, treatment, prognosis, need for follow up Signature Scribe Signature: No scribe Attestation: This note accurately reflects clinical decisions, work performed by myself, DO AMI Carbajal NICHOLAS M DO October 29, 2024 15:05
[2024-10-29] MEDS ORDERED: PRED20TA PO (15:06)
== END 2024-10-29 15:30 | disposition home or self-care (01) ==
LOC: ER 14:23
DX: G51.0 Bell's palsy (principal); I10 Essential (primary) hypertension; J45.909 Unspecified asthma, uncomplicated; K21.9 Gastro-esophageal reflux disease without esophagitis; F41.9 Anxiety disorder, unspecified; Z88.2 Allergy status to sulfonamides; Z88.1 Allergy status to other antibiotic agents; Z88.8 Allergy status to other drugs, medicaments and biological substances; Z88.6 Allergy status to analgesic agent; Z79.899 Other long term (current) drug therapy
CPT/HCPCS: 99283

== ENCOUNTER 2024-11-14 13:09 | Outpatient (CLI) | payer MEDICAID ==
--- NOTE | 2024-11-14 14:24 | RADIOLOGY REPORT ---
Exam: US ULTRASOUND HEAD NECK Date: 11/14/2024 01:35 PM Clinical History: US NECK SOFT TISSUE Comparison: None Technique: Targeted sonographic evaluation of the soft tissues of the right neck was obtained utilizing grayscal e and color Doppler imaging. Findings/Impression: There is a prominent lymph node versus small fluid collection in the right neck soft tissues in regio n of reported palpable abnormality measuring 2.3 x 0.8 by 2.1 cm. Recommend short-term follow-up rig ht neck ultrasound in 1 month.
== END 2024-11-14 23:59 | disposition home or self-care (01) ==
LOC: RAD 13:09
PROVIDERS: ATTEND Family Medicine
DX: R22.1 Localized swelling, mass and lump, neck (principal)
CPT/HCPCS: 76536